=== PATIENT | male | born 1985 | race African-American/Black ===

== ENCOUNTER 2016-11-29 | Emergency (ER) | payer OTHER ==
[~2016-11-29] VITALS: Ht 182.9 cm; Wt 88.0 kg
[~2016-11-29] MED LIST: HYDR-3533 PO
[2016-11-29 00:02] VITALS: BP 142/82; PULSE 91; RESP 16; TEMP 98.5; O2SAT 98
--- NOTE | 2016-11-29 01:17 | PD ---
HPI Chief Complaint: Injury Time Seen by Provider: 01:00 Travel History International Travel<30 days: No Contact w/Intl Traveler<30days: No Traveled to known affect area: No History of Present Illness HPI 31-year-old male presents for evaluation of right fifth finger pain. Prior to arrival the patient was at work, restraining a patient, and afterwards he noticed pain in his right fifth finger. The pain seems to be localized to the DIP joint of the right fifth finger. Pain is worse with flexion and extension. He has difficulty with full extension at the DIP joint. He denies any other injuries and has no other complaints at this time. [facility] Past Medical History Medical History: Denies Significant Hx Social History Alcohol Use: Yes (OCC) Tobacco Use: Yes (OCC) Substance Use: No Allergies-Medications (Allergen,Severity, Reaction): Coded Allergies: Penicillin (Verified Allergy, Unknown, 11/29/16) Reported Meds & Prescriptions Reported Meds & Active Scripts Active No Active Prescriptions or Reported Medications Review of Systems Musculoskeletal: Positive: Limited ROM, Pain Physical Exam Narrative GENERAL: Well-developed well-nourished male in no acute distress SKIN: Warm and dry. Extremities: Tenderness to palpation to the right fifth finger DIP joint. The patient is holding his distal right fifth finger and passive flexion. He is unable to fully extend at the DIP joint. He has pain with passive and active range of motion at this joint. Data Data Last Documented VS Vital Signs Date Time Temp Pulse Resp B/P Pulse Ox O2 Delivery O2 Flow Rate FiO2 11/29/16 00:02 98.5 91 16 142/82 98 Room Air Orders Hand, Complete ([id number]) (11/29/16 ) [facility] Medical Decision Making Medical Screen Exam Complete: Yes Emergency Medical Condition: Yes Medical Record Reviewed: Yes Differential Diagnosis Mallet finger versus finger sprain versus finger fracture Narrative Course Hand x-rays negative. Given his inability to fully extend at the right fifth DIP joint I'm concerned about the possibly of mallet finger. Be discharged with a finger splint in full extension, outpatient follow-up with a hand surgeon. Diagnosis Primary Impression: Mallet finger of right hand Referrals: Ortiz Benito MD Additional Instructions: Do not remove the splint. Follow up with a hand surgeon such as Dr. Benito this week, call to make an appointment. Tylenol or Motrin for discomfort. Med/Other Pt SpecificInfo: Orthopedic Instructions Scripts No Active Prescriptions or Reported Meds Disposition: 01 DISCHARGE HOME Condition: Misha Malik Nov 29, 2016 01:16
--- NOTE | 2016-11-29 01:23 | RADRPT ---
EXAM DATE/TIME: 11/29/2016 01:05 [facility] COMPARISON: No previous studies available for comparison. 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 MEDICAL HISTORY : None. SURGICAL HISTORY : None. ENCOUNTER: Initial ACUITY: 1 day PAIN SCORE: 4/10 LOCATION: Right hand fifth digit. FINDINGS: Three view examination of the right hand demonstrates no soft tissue swelling, dislocation, or fractu re. The carpal bones appear intact. The interphalangeal and metacarpophalangeal joints are intact. Bony mineralization is normal. CONCLUSION: Unremarkable examination of the right hand. Arvind Flanagan MD on November 29, 2016 at 1:21 Board Certified Radiologist. This report was verified electronically.
== END 2016-11-29 01:51 | disposition home or self-care (01) ==
LOC: NEPD
DX: M20.011 Mallet finger of right finger(s) (principal); Z72.0 Tobacco use
CPT/HCPCS: 73130; 99283